=== PATIENT | male | born 1960 | race Caucasian/White ===

== ENCOUNTER 2019-07-26 00:09 | Emergency (ER) | payer SELFPAY ==
--- NOTE | 2019-07-26 00:10 | PC.NURSE ---
RN in to get patient changed into psych scrubs. Pt states can i wash my hands should i wash my hands. It's okay for you to not contaminate people but its okay for me to contaminate you. RN let pt wash his hands. RN then asked pt to get into scrubs. pt states what so you can fucking admit me to a psych watters because that's not happening. I told them I'm not coming here if I am going to a psych [facility]. RN informed pt the scrubs are to keep him safe. pt agreed to putting on the scrubs. Sitter at bedside.
--- NOTE | 2019-07-26 00:18 | ECG_ITS ---
Measurements Intervals [place] Rate: 84 P: 33 UT: 178 QRS: -57 QRSD: 98 T: 34 QT: 340 QTc: 404 Interpretive Statements SINUS RHYTHM INCOMPLETE RIGHT BUNDLE BRANCH BLOCK LEFT ANTERIOR FASCICULAR BLOCK ABNORMAL ECG Electronically Signed On 07-26-2019 8:02:38 CDT by Tereso Allen D.O.
--- NOTE | 2019-07-26 00:19 | ED.PSYCH ---
HPI - Psych General Chief Complaint: Psychiatric Symptoms Stated Complaint: psych eval. Time Seen by Provider: 07/26/19 00:10 Source: patient, EMS and RN notes reviewed Mode of arrival: EMS Limitations: no limitations History of Present Illness HPI Narrative: Pt is a 59 y/o male who presents to the ED, via EMS, for evaluation of feeling angry. EMS states the pt has been having family issues and the pt told dispatch that he wanted to harm himself. Pt denies suicidal ideation to EMS and while in the ED. EMS states that pt wants his family to listen to him and he needed someone to talk to so he called EMS for transport to get his family to actually pay attention to him. Pt states that his father called dispatch, but he states that his father has Alzheimer's disease. Pt states that he cannot talk to his family because they block his calls. He notes that he is going crazy because he cannot talk to anyone. He state that his family issues have been going on for months. Pt states that he is unsure of his trigger because he has over 20 triggers that make him feel angry. He notes that he reached his 'boiling point' when his son would not talk to him this evening. Pt states that he had a couple of beers yesterday (07/25/19), but denies chronic alcohol use. He states that if his family does not talk to him then he will come back again tomorrow and do this entire thing again. Pt denies any intent to harm himself or others. He denies suicidal ideation when questioned. He states he told EMS he wanted to kill himself so they would transport him to the hospital to get his family's attention. Pt reports difficulty sleeping, but denies homicidal ideation, suicidal ideation, back pain, chest pain, dyspnea, abdominal pain, and a fever. MD complaint: other (psychiatric evaluation) Onset (ago): week(s) Context: significant life stressor Associated psychiatric symptoms: none Associated symptoms: other (difficulty sleeping) Treatments prior to arrival: none Review of Systems Review of Systems: Narrative: CONSTITUTIONAL: Reports difficulty sleeping. Denies fever. CARDIOVASCULAR: Denies chest pain. RESPIRATORY: Denies dyspnea. GASTROINTESTINAL: Denies abdominal pain. MUSCULOSKELETAL: Denies back pain. PSYCHIATRIC: Denies homicidal ideation and suicidal ideation. All systems reviewed & are unremarkable except as noted in HPI and below PMFSH Past Medical History Medical History (Updated 07/26/19 @ 01:10 by Margareth Mckeon) Patient denies significant medical history Surgical History Surgical History (Updated 07/26/19 @ 01:10 by Margareth Mckeon) Surgical history unknown Social History Social History (Updated 07/26/19 @ 01:14 by Margareth Mckeon) Smoking status: Current every day smoker Tobacco type: cigarettes Alcohol intake: current Substance use: current Substance use type: marijuana Exam Narrative: Exam Narrative: CONSTITUTIONAL: Awake, alert, conversant, agitated. HEAD: Normocephalic, atraumatic. EYES: EOMI, conjunctiva clear ENT: Nares patent. Mucous membranes moist. NECK: Full range of motion RESPIRATORY: No respiratory distress, speaking in full sentences, no tachypnea HEART: Regular rate ABDOMEN: Non distended, non tender EXTREMITIES: Normal range of motion. No edema SKIN: Warm, dry, no rash. NEUROLOGIC: No focal deficits. Alert and oriented x3. Course Course Emergency Course: Patient initially presented for evaluation of feeling angry. Patient denies any homicidal or suicidal ideation when repeatedly asked. He states that he falsely told EMS that because he wanted to get his family's attention. He has no thoughts of hurting himself, he has no access to firearms, he states he is not have any drug addiction problems. He states he is angry because it feels as if his family never listens to him. I did offer to call the patient's family, but the patient then declined stating that he did not want me to call his family at this time and
[2019-07-26 00:25] VITALS: BP 140/77; PULSE 96; RESP 24; TEMP 36.7; O2SAT 98
--- NOTE | 2019-07-26 00:33 | PC.NURSE ---
Patient states unable to void at this time and given water. Will continue to monitor.
[2019-07-26 00:48] LABS: Basophils Percent Auto 0.3 % (0.2-1.2); Eosinophils Absolute Auto 0.1 K/mm3 (0-0.3); Eosinophils Percent Auto 1.3 % (0-4.4); Hematocrit 47.7 % (42.0-52.0); Hemoglobin 15.6 g/dL (14.0-18.0); Immature Granulocyte Absolute 0.04 K/mm3 (0.00-0.031); Immature Granulocyte Percent A 0.4 % (0-0.5); Lymphocytes Absolute Auto 2.82 K/mm3 (0.9-3.2); Lymphocytes Percent Auto 27.4 % (18.3-44.2); Mean Corpuscular HGB Conc 32.7 g/dl (32-36); Mean Corpuscular Volume 88.7 fl (80-100); Mean Platelet Volume 9.7 fl (7.4-10.4); Monocytes Absolute Auto 0.9 K/mm3 (0.1-0.6); Monocytes Percent Auto 8.4 % (2.6-8.5); Neutrophils Absolute Auto 6.4 K/mm3 (1.3-6.7); Neutrophils Percent Auto 62.2 % (45.5-73.1); Platelet Count Result 286 k/mm3 (150-375); Red Blood Count 5.38 M/mm3 (4.6-6.20); Red Cell Distribution Width 13.6 % (11.5-14.5); White Blood Count 10.3 K/mm3 (4.5-10.0)
[2019-07-26 00:55] LABS: Add Urine Microscopic? YES; Appearance Urine Clear (Clear); Bilirubin Urine Negative (Negative); Blood Urine Negative (Negative); Color Urine Yellow (Yellow); Glucose Urine UA Negative (Negative); Ketones Urine Trace mg/dL (Negative); Leukocyte Esterase Ur Negative LEU/UL (Negative); Mucus Urine Rare /lpf; Nitrate Urine Negative (Negative); Protein Urine 1+ mg/dL (Negative); Specific Grav Ur 1.025 (1.001-1.035); Squamous Epithelial Cell Urine Rare /hpf (Few); WBC Urine 0-3 /hpf
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
[2019-07-26 00:57] LABS: Blood Urea Nitrogen 12 mg/dL (9-20); Calcium 9.4 mg/dL (8.4-10.2); Carbon Dioxide 25 mmol/L (22-30); Chloride 106 mmol/L (98-107); Estimated Glomerular Filt Rate > 60; Glucose 129 mg/dL (75-110); Potassium 4.3 mmol/L (3.4-5.0); Sodium 137 mmol/L (137-145)
[2019-07-26 00:59] LABS: Acetaminophen < 10 ug/mL (10-30); Ethanol < 10 mg/dL (<10); Salicylate < 1.0 mg/dL (2-20)
[2019-07-26 01:05] LABS: Amphetamine Screen Urine Negative (Negative); Barbiturate Screen Urine Negative (Negative); Benzodiazepines Screen Urine Negative (Negative); Cannabinoid Screen Urine Positive (Negative); Cocaine Screen Urine Negative (Negative); Methadone Screen Urine Negative (Negative); Opiate Screen Urine Negative (Negative); Phencyclidine Screen Urine Negative (Negative)
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
== END 2019-07-26 01:10 | disposition home or self-care (01) ==
LOC: ANHED 01:09
PROVIDERS: Emergency Provider Emergency Medicine
DX: R45.4 Irritability and anger (principal)
CPT/HCPCS: 36415; 80048; 80307; 81001; 84443; 85025; 93005; 99283